=== PATIENT | female | born 1980 | race Caucasian/White ===

== ENCOUNTER 2018-10-01 08:07 | Outpatient (REF) | payer BC, SELFPAY ==
[2018-10-01 13:20] LABS: ALT 27 U/L (12-78); AST 18 U/L (15-37); Albumin 3.8 g/dL (3.4-5.0); Alkaline Phosphatase 71 U/L (46-116); BUN 11 mg/dL (7-18); Bilirubin, Total 0.4 mg/dL (0.2-1.0); Calcium 9.2 mg/dL (8.5-10.1); Chloride 103 mmol/L (98-107); Glucose 84 mg/dL (70-100); Potassium 4.1 mmol/L (3.5-5.1); Sodium 142 mmol/L (136-145); Total Protein 7.6 g/dL (6.4-8.2)
[2018-10-01 13:40] LABS: HCT 41.7 % (36.0-46.0); HGB 13.3 g/dL (12.0-15.5); Mean Corp. HGB Concentration 31.9 g/dL (32.0-36.0); Mean Corpuscular Volume 94.1 fL (80-95); Mean Platelet Volume 11.5 fL (8.0-11.0); Platelet Count 252 x1000/uL (130-400); RBC 4.43 m/cumm (4.00-5.20); RBC Distribution Width 12.4 % (11.7-14.6); White Blood Cell Count 9.27 k/cumm (4.4-10.8)
== END 2018-10-01 08:27 ==
LOC: NCHCN 08:07
PROVIDERS: PCP Family Medicine; Visit Provider Nurse Practitioner
DX: R53.83 Other fatigue (principal)
CPT/HCPCS: 80053; 85027; 84443

== ENCOUNTER 2019-04-15 10:02 | Outpatient (REF) | payer BC, SELFPAY ==
--- NOTE | 2019-04-15 09:00 | PAPFT_PTH ---
PATIENT: Raquel Smith LOC: [facility] U#:[id number] AGE/SX: 38/F ROOM: RE04/15/[address]: Jeannine Harris : 1980 BED: DIS: 04/15/2019 SPEC #: [id number] RECD: 04/15/19 12:56 STATUS: GUILHERME RENoa #: [id number] SHRUTHI: 04/15/19 09:[address]: Jeannine Harris [facility] Cytology RECD BY: Candice Sommers Tissues: 1 - CX/ENDOCX FOR PAP SMEARS Procedures: PAP THIN PREP/UVM Screening HPV DNA PROBE Comments: [id number]
== END 2019-04-15 10:22 ==
LOC: NCHCN 10:02
PROVIDERS: Visit Provider Nurse Practitioner
DX: Z00.00 Encounter for general adult medical examination without abnormal findings (principal); Z12.4 Encounter for screening for malignant neoplasm of cervix; Z11.51 Encounter for screening for human papillomavirus (HPV)
CPT/HCPCS: 88142; 87624

== ENCOUNTER 2019-07-21 14:12 | Outpatient (CLI) | payer BC, SELFPAY ==
[2019-07-21 14:46] LABS: Abs Immature Grans 0.04 k/cumm (0.0-0.09); Absolute Basophil Count 0.02 k/cumm (0.0-0.2); Absolute Lymphocyte Count 1.97 k/cumm (1.2-3.4); Absolute Monocyte Count 0.76 k/cumm (0.11-0.7); Basophils % 0.2; Eosinophils % 0.8; HGB 12.5 g/dL (12.0-15.5); Immature Grans % 0.3; Lymphocytes % 15.8; Mean Corp. HGB Concentration 32.9 g/dL (32.0-36.0); Mean Corpuscular Hemoglobin 30.4 pg (27.0-33.0); Mean Corpuscular Volume 92.5 fL (80-95); Mean Platelet Volume 10.6 fL (8.0-11.0); Monocytes % 6.1; Neutrophils % 76.8; Platelet Count 218 x1000/uL (130-400); RBC 4.11 m/cumm (4.00-5.20); RBC Distribution Width 12.9 % (11.7-14.6); White Blood Cell Count 12.48 k/cumm (4.4-10.8)
[2019-07-21 15:13] LABS: Absolute Neutrophil Count 9.58 k/cumm (1.2-6.7)
[2019-07-22 10:28] LABS: Varicella IgG Antibody Positive (See Note)
[2019-07-22 10:48] LABS: Hepatitis C Ab w Rflx HCV PCR Negative (Negative); Rubella IgG Ab (UVM) Positive (See Note)
[2019-07-22 10:59] LABS: Hepatitis B Surface Ag Negative (Negative)
[2019-07-22 11:01] LABS: HIV-1/2 Ag & Ab Screen Negative (Negative)
[2019-07-22 16:10] LABS: Syphilis Total Ab w/Reflex Nonreactive (Nonreactive)
== END 2019-07-21 14:32 ==
PROVIDERS: PCP Family Medicine; Visit Provider Advanced Practice Midwife
DX: Z34.91 Encounter for supervision of normal pregnancy, unspecified, first trimester (principal); Z11.4 Encounter for screening for human immunodeficiency virus [HIV]; Z11.59 Encounter for screening for other viral diseases; Z01.84 Encounter for antibody response examination
CPT/HCPCS: 36415; 86787; 86803; 86850; 86900; 86901; 87340; 87389; 85025; 86762; 86780

== ENCOUNTER 2019-07-21 15:27 | Outpatient (REF) | payer BC, SELFPAY ==
[2019-07-21 15:29] LABS: *AMPHETAMINES SCREEN URINE Negative (Negative); *BARBITURATES SCREEN URINE Negative (Negative); *BENZODIAZEPINES SCREEN URINE Negative (Negative); Cannabinoids THC Negative (Negative); Cocaine Screen,Urine Negative (Negative); METHADONE URINE SCREEN Negative (Negative); OPIATES URINE SCREEN Negative (Negative)
[2019-07-21 15:41] LABS: Tricyclic Antidepressants Negative (Negative)
[2019-07-25 07:47] LABS: Buprenorphine Negative; Norbuprenorphine Negative
== END 2019-07-21 15:47 ==
LOC: LBN 15:27
PROVIDERS: PCP Family Medicine; Visit Provider Advanced Practice Midwife
DX: Z34.91 Encounter for supervision of normal pregnancy, unspecified, first trimester (principal)
CPT/HCPCS: 80307; 87086

== ENCOUNTER 2019-08-18 15:10 | Outpatient (REF) | payer BC, SELFPAY ==
[2019-08-19 13:35] LABS: Chlamydia Result Negative (Negative); GC Result Negative (Negative)
== END 2019-08-18 15:30 ==
LOC: LBN 15:10
PROVIDERS: PCP Family Medicine; Visit Provider Advanced Practice Midwife
DX: Z34.92 Encounter for supervision of normal pregnancy, unspecified, second trimester (principal); Z11.3 Encounter for screening for infections with a predominantly sexual mode of transmission
CPT/HCPCS: 87491; 87591

== ENCOUNTER 2019-09-11 13:00 | Inpatient (IN) | payer BC, SELFPAY ==
[2019-09-11 14:06] LABS: Abs Immature Grans 0.04 k/cumm (0.0-0.09); Absolute Basophil Count 0.02 k/cumm (0.0-0.2); Absolute Eosinophil Count 0.08 k/cumm (0.0-0.7); Absolute Monocyte Count 0.92 k/cumm (0.11-0.7); Basophils % 0.1; Eosinophils % 0.5; HCT 39.4 % (36.0-46.0); HGB 13.1 g/dL (12.0-15.5); Immature Grans % 0.3 %; Lymphocytes % 8.5; Mean Corp. HGB Concentration 33.2 g/dL (32.0-36.0); Mean Corpuscular Hemoglobin 30.8 pg (27.0-33.0); Mean Corpuscular Volume 92.5 fL (80-95); Mean Platelet Volume 10.1 fL (8.0-11.0); Monocytes % 5.8; Neutrophils % 84.8; Platelet Count 222 x1000/uL (130-400); RBC 4.26 m/cumm (4.00-5.20); RBC Distribution Width 12.6 % (11.7-14.6); White Blood Cell Count 15.79 k/cumm (4.4-10.8)
[2019-09-11 14:07] LABS: Absolute Lymphocyte Count 1.34 k/cumm (1.2-3.4); Absolute Neutrophil Count 13.39 k/cumm (1.2-6.7)
--- NOTE | 2019-09-11 14:49 | W.PM.HP.N ---
Date of service: 09/11/19 Time of Service: 14:49 Assessment and Plan Assessment and plan (1) Complete : Status: Acute Assessment and plan: The plan is to observe her tonight, she did have an elevated white counts we will go ahead and start her on Augmentin 875 mg twice a day for 7 days. If she develops fevers chills or heavy bleeding she will contact me. We will observe her tonight and if all goes well we will discharge her to home tomorrow morning. An offer was made to have the baby sent to pathology and or the placenta sent to pathology for DNA determination as well as for an autopsy of the baby. She would not change any of her behavior based on these results, therefore requested that we not send either the placenta or the baby to pathology. I told her that she certainly can change her mind at any time we would be happy to sign either the placenta or the baby to pathology and it certainly is her right to not send either 1 to pathology. History of Present Illness History of Present Illness Chief Complaint: Patient called and reported that she was passing her fetus at home. Narrative: Patient had a known demise measuring 14 weeks gestation. She called the clinic stating that she was delivering the baby at home and was talked through the delivery. She had cut the cord and came into the hospital with the placenta still in situ. Review of Systems All systems reviewed & are unremarkable except as noted in HPI and below COUNTS INCLUDE 234 BEDS AT THE [facility] Medical History (Updated 09/11/19 @ 14:53 by George Bullard MD) Advanced maternal age (AMA) in (Acute) Food intolerance in adult (Acute) Group B Streptococcus carrier, delivered, current hospitalization (Resolved 11/13/13) Premature rupture of membranes delivered (Resolved 11/13/13) Term of female (Resolved 11/13/13) History History 4 Para 3 Hx # Term Pregnancies 3 Multiple births 0 Hx # Pregnancies 0 Ectopic pregnancies 0 AB induced 0 Hx Number of Living Children 3 AB spontaneous 0 Past Pregnancies Del. Date GA/Weeks # Outcome Route Wgt Sex Labor Lgth Anesthesia Location Prov Complic 06/02/09 39 No Successful vaginal 8 lb Male 7 hrs [facility] - [facility] 04/27/11 41 No Successful vaginal 8 lb Male 7 hrs [facility] 11/13/13 39 No Successful vaginal 8 lb Female 2 hrs [facility] Delivery Date: 06/02/09 On 07/21/19 @ 13:46 Alexia Hudson PROM, needed pitocin, Delivery Date: 04/27/11 On 07/21/19 @ 13:47 Alexia Hudson IOL for postdates and long prodomal phase, pitocin only Delivery Date: 11/13/13 On 07/21/19 @ 13:49 Alexia Hudson PROM, needed pitocin Meds Home Medications and Allergies Home Medications Medication Instructions Recorded Confirmed Type PNV cmb#95-ferrous fumarate-FA 1 ea PO 04/08/13 09/11/19 History [ Vitamins Tablet] Allergies Allergy/AdvReac Type Severity Reaction Status Date / Time No Known Allergies Allergy Unverified 09/11/19 10:23 Exam Narrative Exam Narrative: The patient is alert, no acute distress. I did do a bedside ultrasound which revealed the placenta is still in the uterine cavity. The patient was not having any active bleeding and gentle fundal massage was then done. I told the patient that I would recommend we put a Hep-Lock in, that I would going to change and then see if with gentle fundal massage and light traction if I be able to get the placenta to expel. If not I would then go ahead and try Cytotec and if that failed we would then go ahead go to the operating room and perform a dilatation and curettage. When I came back from changing she had ready expelled the placenta and it was intact. I carefully inspected the placenta, the cord was attached and the placental disc was intact. I did do a bedside ultrasound which showed the placenta was now expelled, there is a little bit of clot in the endometrium but otherwise the uterus was involuting nicely. The uterus was firm and approximately 14 weeks size without any active bleeding. There is no vaginal lacerations and a gentle bimanual exam was done which revealed no uterine tenderness no cervical motion tenderness, and no active bleeding. Results Labs Result diagrams: 09/11/19 13:55 Labs: Laboratory Results - last 24 hr 09/11/19 13:55 WBC 15.79 H RBC 4.26 Hgb 13.1 Hct 39.4 MCV 92.5 MCH 30.8 MCHC 33.2 RDW 12.6 Plt Count 222 MPV 10.1 Immature Gran % 0.3 Neutrophils % 84.8 Lymphocytes % 8.5 Monocytes % 5.8 Eosinophils % 0.5 Basophils % 0.1 Absolute Neutrophils 13.39 H Absolute Lymphocytes 1.34 Absolute Monocytes 0.92 H Absolute Eosinophils 0.08 Absolute Basophils 0.02
[2019-09-11] MEDS: Amoxicillin 875/Clav. 125 TAB PO (19:56)
== END 2019-09-11 19:50 | disposition home or self-care (01) | DRG 770 ==
PROVIDERS: Admitting Provider Advanced Practice Midwife; PCP Family Medicine; Visit Provider Advanced Practice Midwife
DX: O03.9 Complete or unspecified spontaneous abortion without complication (principal); Z3A.18 18 weeks gestation of pregnancy; D72.829 Elevated white blood cell count, unspecified
CPT/HCPCS: 36415; 99221; 85025

== ENCOUNTER 2021-05-24 09:51 | Outpatient (REF) | payer BC, SELFPAY | END 2021-05-24 09:52 | disposition home or self-care (01) | LOC: NCHCN 09:51 | PROVIDERS: PCP Nurse Practitioner; Visit Provider Nurse Practitioner | DX: N76.0 Acute vaginitis (principal) | CPT/HCPCS: 87480; 87510; 87660 ==

== ENCOUNTER 2023-11-21 04:53 | Outpatient (CLI) | payer BC, SELFPAY ==
[2023-11-21 15:10] LABS: Abs Immature Grans 0.03 10^3/uL (0.0-0.06); Absolute Basophil Count 0.04 10^3/uL (0.0-0.2); Absolute Eosinophil Count 0.16 10^3/uL (0.0-0.7); Absolute Lymphocyte Count 1.92 10^3/uL (1.2-3.4); Absolute Monocyte Count 0.56 10^3/uL (0.1-0.8); Absolute Neutrophil Count 5.15 10^3/uL (1.2-6.7); Basophils % 0.5; HCT 37.2 % (36.0-46.0); Immature Grans % 0.4; Lymphocytes % 24.4; MCH 29.9 pg (27.0-33.0); MCHC 32.3 % (32.0-36.0); MCV 93 fL (80-95); MPV 10.9 fL (8.0-11.0); Monocytes % 7.1; Neutrophils % 65.6; Platelet Count 237 10^3/uL (130-400); RBC 4.01 10^6/uL (3.93-5.22); RDW 12.3 % (11.7-14.6); RDW-SD 42.5 fL; WBC 7.86 10^3/uL (4.4-10.8)
[2023-11-21 15:32] LABS: Hemoglobin A1C 5.4 % (<5.7)
[2023-11-21 16:07] LABS: ALT 29 U/L (14-59); AST 15 U/L (15-37); Albumin 3.7 g/dL (3.4-5.0); Alkaline Phosphatase 72 U/L (46-116); Anion Gap 10.1 mmol/L (3-11); BUN 16 mg/dL (7-18); Bilirubin, Total 0.2 mg/dL (0.2-1.0); CO2 28.9 mmol/L (21.0-32.0); CREATININE 0.7 mg/dL (0.55-1.02); Calcium 9.2 mg/dL (8.5-10.1); Calculated LDL 103 mg/dL (<100); Chloride 105 mmol/L (98-107); Cholesterol 189 mg/dL (<200); Estimated GFR 109.98 (mL/min/1.73m2); Glucose 96 mg/dL (74-106); HDL Cholesterol 69 mg/dL (40-60); Potassium 3.9 mmol/L (3.5-5.1); Sodium 144 mmol/L (136-145); TSH (W/Ref FT4) 1.87 uIU/mL (0.36-3.74); Triglyceride 86 mg/dL (<150)
[2023-11-21 16:28] LABS: C-Reactive Protein 0.59 mg/dL (<or=0.5)
[2023-11-21 23:36] LABS: HBs Antibody, Quant <3.1 mIU/mL (See Note); Hepatitis B Surface Ab Negative (See Note)
[2023-11-22 00:14] LABS: Hepatitis C Ab w Rflx HCV PCR Negative (Negative)
[2023-11-22 00:19] LABS: Hep A Antibody IgM Negative (Negative)
== END 2023-11-21 04:54 | disposition home or self-care (01) ==
LOC: LBO 04:53
PROVIDERS: Visit Provider Nurse Practitioner Family
DX: E55.9 Vitamin D deficiency, unspecified (principal); D51.3 Other dietary vitamin B12 deficiency anemia; I10 Essential (primary) hypertension; E78.5 Hyperlipidemia, unspecified
CPT/HCPCS: 36415; 80053; 80061; 86706; 86709; 86803; 83036; 84443; 85025; 86140

== ENCOUNTER 2023-12-05 17:38 | Outpatient (REF) | payer BC, SELFPAY ==
--- NOTE | 2023-12-05 15:33 | PAPFT_PTH ---
PATIENT: Raquel Smith LOC: [facility] U#:[id number] AGE/SX: 43/F ROOM: RE12/05/[address]: Zenia Capps : 1980 BED: DIS: 12/05/2023 SPEC #: [id number] RECD: 12/05/23 18:31 STATUS: KAMLESHHema RENoa #: [id number] SHRUTHI: 12/05/23 15:[address]: Zenia Capps DEPT: [facility] Cytology RECD BY: Candice Sommers ENTERED: 12/05/23 18:32 SP TYPE: PAPFT NIKI DR: Unknown,Unknown Tissues: 1 - CX/ENDOCX FOR PAP SMEARS Procedures: PAP THIN PREP/UVM Screening Comments: [id number] (CHLAMYDIA/GC)
[2023-12-06 15:06] LABS: Chlamydia Result Negative (Negative); GC Result Negative (Negative)
== END 2023-12-05 17:39 | disposition home or self-care (01) ==
LOC: LBN 17:38
PROVIDERS: Visit Provider Nurse Practitioner Family
DX: Z12.72 Encounter for screening for malignant neoplasm of vagina (principal)
CPT/HCPCS: 87491; 87591; 88142

== ENCOUNTER → 2023-12-16 02:42 | Outpatient (CLI) | payer BC, SELFPAY ==
--- NOTE | 2023-12-16 | DI.MAMMO_ITS ---
Exam(s) MAMMO SCREENING EXAM: MAMMO SCREENING CLINICAL HISTORY: SCREENING, Z12.31 TECHNIQUE: Bilateral full field digital CC and MLO mammographic images were obtained with 3D tomosyn thesis and utilizing computer aided detection (CAD). COMPARISON: This is a baseline examination. FINDINGS: Masses/Architectural Distortion: None seen. Microcalcifications: No suspicious pleomorphic-type are seen. Skin Thickening/Nipple Retraction: None. IMPRESSION: 1. No evidence of a malignancy at this time. 2. Unless there is more urgent need, screening mammography is recommended, as per [employer] [employer] guidelines. BI-RADS Category 1 - Negative Breast Density - Category C - Heterogeneously dense Breast density category C or D implies that the patient has dense breast tissue. Dense breast tissue is very common and is not abnormal but dense breast tissue can make it harder to find cancer on a ma mmogram. Also, dense breast tissue may increase their breast cancer risk. This information about the result of the mammogram report was provided to the patient to raise their awareness. Use this report when you speak with the patient about their risks for breast cancer, which includes their family hist ory. At that time, you may recommend for more screening tests (Ultrasound or MRI) as they might be us eful based on their risk. A negative radiographic report should not delay biopsy if a dominant or clinically suspicious mass is present. Up to ten percent of cancers are not identified on mammography. A negative report may reinforce clinical impression. Adenosis and dense breasts may obscure an underlying neoplasm. False positive reports average 6 to 10%. Patient will receive a letter notifying them of these results.
== END ==
PROVIDERS: PCP Nurse Practitioner Family; Visit Provider Nurse Practitioner Family
DX: Z12.31 Encounter for screening mammogram for malignant neoplasm of breast (principal); R92.30 Dense breasts, unspecified
CPT/HCPCS: 77063; 77067